=== PATIENT | male | born 1970 | race Caucasian/White ===

== ENCOUNTER 2021-04-02 10:52 | Emergency (ER) | payer OTHER, SELFPAY ==
[2021-04-02 11:14] VITALS: BP 141/92; PULSE 103; RESP 16; TEMP 37.7; O2SAT 98
--- NOTE | 2021-04-02 11:20 | ED.URI ---
HPI - URI/Sore Throat General Chief Complaint: Upper Respiratory Infection Stated Complaint: preston/sore throat/cough/fatigue Time Seen by Provider: 04/02/21 11:21 Source: patient and RN notes reviewed Mode of arrival: ambulatory Limitations: no limitations History of Present Illness HPI Narrative: 51-year-old male presents to the [facility] with complaints of headache, sore throat, cough and fatigue. Reports that he is Covid vaccinated. Had laser vaccine . Patient states he has had the increased fatigue and sore throat headache since Wednesday, 2 days ago. Has had low-grade fevers. Has taken TheraFlu Related Data Home Medications Medication Instructions Recorded Confirmed No Home Medications 04/02/21 04/02/21 Allergies Allergy/AdvReac Type Severity Reaction Status Date / Time nkda Allergy Mild Uncoded 04/08/08 09:26 Review of Systems Review of Systems: All systems reviewed & are unremarkable except as noted in HPI and below Constitutional: Constitutional: Reports as per HPI, Reports chills, Reports fatigue and Reports fever(s) Eyes: Eyes: Reports no additional eye complaints ENT: Reports as per HPI, Denies dizziness, Reports nasal congestion and Reports sore throat Cardiovascular: Cardiovascular: Reports no additional cardiovascular complaints and Denies chest pain Respiratory: Respiratory: Reports as per HPI, Denies chest congestion, Reports cough, Denies dyspnea and Denies wheezing Gastrointestinal: Gastrointestinal: Denies abdominal pain, Denies nausea and Denies vomiting Musculoskeletal: Musculoskeletal: Reports as per HPI and Reports myalgias Integumentary/Breasts: Skin/Breast: Reports system reviewed and no additional complaints, except as docu Neurologic: Reports system reviewed and no additional complaints, except as documented Psychiatric: Psychiatric: Reports no additional psychiatric complaints Allergic/Immunologic: Allergic/Immunologic: Reports no additional allergic/immunologic complaints [facility] Past Medical History Medical History (Updated 04/02/21 @ 11:39 by Eloisa Chavez) No significant medical problems Surgical History Surgical History (Updated 04/02/21 @ 11:39 by Eloisa Chavez) No significant past surgical history Family History Family History Grandparent Family history of Alzheimer's disease, Onset Age: 94 Family history of malignant neoplasm of urinary bladder Family history of thoracic aortic aneurysm Family history of congestive heart failure, Onset Age: 85 Mother Family history of malignant neoplasm of breast in first degree relative, Onset Age: 62 Social History Social History Smoking status: Former smoker Smoking end date: 04/26/12 Alcohol intake: current Comments At the time of my signature, I reviewed and agree with the nursing past medical, surgical, social, and family history. There is no relevant family history pertinent to the patient complaint. Exam Const: General: alert and ill appearing acutely (Mild) Nutritional Appearance: well nourished Orientation/consciousness: patient oriented x3 Limitations: no limitations HENMT: Head: normal to inspection Ears: external ears normal, TM's normal bilaterally and EAC's normal General nose exam: Normal external nose present Face and sinus: normal facial exam Mouth: Yes Normal oral and palatal mucosa present Throat: tonsils normal, uvula midline and postnasal drainage Eyes: Conjunctivae: conjunctivae normal Pupils: Equal, round and reactive pupils present Neck: Neck: normal visual inspection, no lymphadenopathy and no meningeal signs Chest: Chest palpation & inspection: normal inspection of the chest Resp: Effort & Inspection: normal respiratory effort and no use of accessory muscles Auscultation: clear to auscultation bilaterally, no crackles, no rales, no rhonchi and no wheezes Cardio: R
[2021-04-03 19:33] LABS: SARS-CoV-2 RNA PCR Positive
== END 2021-04-02 11:41 | disposition home or self-care (01) ==
PROVIDERS: Emergency Provider Nurse Practitioner; PCP Internal Medicine
DX: U07.1 COVID-19 (principal); Z87.891 Personal history of nicotine dependence
CPT/HCPCS: 87804; 99213; C9803; G0463; U0003; U0005

== ENCOUNTER 2021-07-01 06:21 | Emergency (ER) | payer OTHER, SELFPAY ==
[2021-07-01] VITALS (25 sets, daily range): BP systolic 154–185; BP diastolic 90–111; PULSE 72–94; RESP 11–25; TEMP 36.6; O2SAT 97–100
--- NOTE | ~2021-07-01 | CT_ITS ---
EXAMINATION: CT brain wo con DATE: 07/01/2021 07:03 INDICATION: Near syncope. TECHNIQUE: Computed tomography (CT) of the head was performed without intravenous contrast. The mA wa s adjusted according to patient size. Iterative reconstruction technique was employed. The dose-lengt h product was 681.00 mGy-cm. COMPARISON: None FINDINGS: There is no intracranial hemorrhage, acute infarction, or abnormal intracranial mass lesion . The ventricles are normal in size. The orbits are normal. There is mucosal thickening in the parana myah sinuses. The mastoid air cells are normal. IMPRESSION: 1. Normal brain. Reviewed, dictated and finalized at location A. N SERVICE WORKER IMPRESSION: 1. Normal brain.
--- NOTE | ~2021-07-01 | XR_ITS ---
EXAMINATION: XR chest 2V DATE: 07/01/2021 07:04 INDICATION: Near syncope. TECHNIQUE: Frontal and lateral views of the chest were obtained. COMPARISON: CT abdomen and pelvis 04/08/2008 FINDINGS: There is mild scarring at right lung apex. No pleural effusion or pneumothorax. The heart s ize is normal. IMPRESSION: 1. Mild scarring at right lung apex. Reviewed, dictated and finalized at location A. CUTTER
--- NOTE | ~2021-07-01 | CT_ITS ---
EXAMINATION: Chaitanya Plascencia MD DATE: 07/01/2021 08:51 INDICATION: Aortic dissection. TECHNIQUE: Computed tomographic angiography (CTA) of the chest, abdomen, and pelvis was performed wit h 100 mL Omnipaque-350 intravenous contrast. Automated exposure control and iterative reconstruction technique were employed. The dose-length product was 693.38 mGy-cm. Maximum intensity projection 3D-r econstructions of the aorta and other arteries were constructed by the technologist on a separate wor kstation. COMPARISON: CT abdomen and pelvis 04/08/2008 FINDINGS: CHEST CTA: There is mild scarring at the lung apices. No pleural effusion. The heart size is normal. No pericard ial effusion. Thoracic aorta is normal. Calcified right hilar lymph nodes are consistent with old gra nulomatous disease. ABDOMEN AND PELVIS CTA: There are cysts in the liver measuring up to 12 mm. The gallbladder is distended. The spleen, pancrea s, and adrenal glands are normal. There is cortical thinning of the kidneys. There is a 6 mm stone in right kidney. There are 4 mm and 3 mm stones in left kidney. There are cysts in the kidneys measurin g up to 2.7 cm on the left. The prostate is mildly enlarged. There is a left inguinal hernia containi ng fat. There are no dilated loops of bowel. The appendix is normal. There are no pathologically enla rged lymph nodes. There is no free intraperitoneal fluid. There is an umbilical hernia containing fat . There is mild aortic atherosclerosis. No aneurysm or dissection. There is no significant stenosis o f celiac axis, superior mesenteric artery, the renal arteries, or inferior mesenteric artery. There i s mild lumbar spondylosis. IMPRESSION: 1. Mild aortic atherosclerosis. No aneurysm or dissection. 2. Gallbladder distention, which may be secondary to fasting. Correlate with physical exam for eviden ce of acute cholecystitis. 3. Umbilical hernia and left inguinal hernia containing fat. Reviewed, dictated and finalized at location A. HOUSE WHEEL OPERATOR IMPRESSION: 1. Mild aortic atherosclerosis. No aneurysm or dissection. 2. Gallbladder distention, which may be secondary to fasting. Correlate with ph ysical exam for evidence of acute cholecystitis. 3. Umbilical hernia and left inguinal hernia containing fat.
--- NOTE | 2021-07-01 06:45 | ECG_ITS ---
Measurements Intervals [place] Rate: 74 P: 44 VT: 148 QRS: 72 QRSD: 94 T: 52 QT: 340 QTc: 378 Interpretive Statements SINUS RHYTHM POSSIBLE ANTERIOR MYOCARDIAL INFARCTION , OF INDETERMINATE AGE NO PREVIOUS ECG AVAILABLE FOR COMPARISON Electronically Signed On 07-01-2021 9:45:54 CALL CENTER RECRUITER by Eleazar Saenz M.D.
[2021-07-01] MEDS: ASPIRIN 81 MG CHEWABLE TABLET 324 MG PO (06:49)
[2021-07-01 07:06] LABS: Basophils Absolute Auto 0.1 K/mm3 (0.0-0.1); Basophils Percent Auto 0.9 % (0.2-1.2); Eosinophils Absolute Auto 0.2 K/mm3 (0-0.3); Eosinophils Percent Auto 3.5 % (0-4.4); Hematocrit 48.7 % (42.0-52.0); Hemoglobin 16.6 g/dL (14.0-18.0); Immature Granulocyte Absolute 0.03 K/mm3 (0.00-0.031); Immature Granulocyte Percent A 0.6 % (0-0.5); Lymphocytes Absolute Auto 1.64 K/mm3 (0.9-3.2); Lymphocytes Percent Auto 30.4 % (18.3-44.2); Mean Corpuscular HGB Conc 34.1 g/dl (32-36); Mean Corpuscular Hemoglobin 31.9 pg (26-34); Mean Corpuscular Volume 93.7 fl (80-100); Mean Platelet Volume 10.3 fl (7.4-10.4); Monocytes Absolute Auto 0.4 K/mm3 (0.1-0.6); Monocytes Percent Auto 6.9 % (2.6-8.5); Neutrophils Absolute Auto 3.1 K/mm3 (1.3-6.7); Neutrophils Percent Auto 57.7 % (45.5-73.1); Platelet Count Result 241 k/mm3 (150-375); Red Cell Distribution Width 13.2 % (11.5-14.5); White Blood Count 5.4 K/mm3 (4.5-10.0)
[2021-07-01 07:24] LABS: Prothrombin Time 12.3 Seconds (11.1-14.7)
[2021-07-01 07:25] LABS: Partial Thromboplastin Time 27.6 SECONDS (22.3-36.8)
--- NOTE | 2021-07-01 07:25 | ED.GENADULT ---
HPI - General Adult General Chief complaint: Unspecified Stated complaint: something doesnt feel right chills, unbalanced, Time Seen by Provider: 07/01/21 07:23 Source: patient Mode of arrival: ambulatory Limitations: no limitations History of Present Illness HPI narrative: 51 years old white male, got out of bed this morning not feeling well, feeling off, pain between shoulder blade, a lot of stress lately, history of GERD worse over the last [address] himself to the emergency room. Patient does not smoke he drinks occasionally does not use drugs. Currently feeling okay. Patient denies any fever, chills, nausea, vomiting, chest pain or shortness of breath. Related Data Allergies Allergy/AdvReac Type Severity Reaction Status Date / Time No Known Drug Allergies Allergy Verified 07/01/21 06:51 Review of Systems Review of Systems: CONSTITUTIONAL: Denies fever, chills, or sweats. EYES: Denies visual changes, redness, or discharge. ENT: Denies rhinorrhea, congestion, sore throat, or otalgia. CARDIOVASCULAR: Denies chest pain, palpitations, or edema. RESPIRATORY: Denies cough or dyspnea. GASTROINTESTINAL: Denies abdominal pain, nausea, vomiting, or diarrhea. GENITOURINARY: Denies dysuria or hematuria. SKIN: Denies rash or itching. MUSCULOSKELETAL: Denies back pain, joint pain, or myalgia. NEUROLOGIC: Denies headache, numbness, or weakness. PSYCHIATRIC: Stress and depression [facility] Past Medical History Medical History No significant medical problems Surgical History Surgical History No significant past surgical history Family History Family History Grandparent Family history of Alzheimer's disease, Onset Age: 94 Family history of malignant neoplasm of urinary bladder Family history of thoracic aortic aneurysm Family history of congestive heart failure, Onset Age: 85 Mother Family history of malignant neoplasm of breast in first degree relative, Onset Age: 62 Social History Social History Smoking status: Former smoker Smoking end date: 04/26/12 Alcohol intake: current Exam Narrative: General appearance: Well-developed, well-nourished Skin: Normal color Head: Normocephalic, nontraumatic Eyes: Clear conjunctiva ENT: Oropharynx normal, ears normal, nose normal Neck: Supple, nontender Chest and respiratory: Airway patent, no respiratory distress, no accessory muscle use Heart: Regular rate/rhythm Abdomen: Soft, nontender, no organomegaly, quiet bowel sounds Vascular: Normal peripheral pulses, normal capillary refill. 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 Work-up did not show any significant findings to explain patient condition. Patient does not have any coronary artery risk factors or any other comorbidities. My plan to start patient on antihypertensive medication. Patient was able to get out of bed and walk around in the emergency room without any complaints or abnormalities. Vital Signs Vital signs: Vital Signs Pulse Oximetry 100 07/01/21 06:30 Temperature 36.6 C 07/01/21 06
[2021-07-01 08:02] LABS: Alanine Aminotransferase 38 U/L (4-50); Albumin Level 4.2 g/dL (3.5-5.1); Alkaline Phosphatase 108 U/L (38-126); Anion Gap 7 mmol/L (8-16); Aspartate Amino Transferase 32 U/L (17-59); Bilirubin,Total 0.4 mg/dL (0.2-1.3); Blood Urea Nitrogen 14 mg/dL (9-20); Calcium 8.8 mg/dL (8.4-10.2); Carbon Dioxide 26 mmol/L (22-30); Chloride 109 mmol/L (98-107); Estimated CRCL calculation 95 ml/min; Estimated Glomerular Filt Rate > 60; Glucose 132 mg/dL (65-110); Lipase 82 U/L (23-300); Sodium 142 mmol/L (137-145)
[2021-07-01 08:12] LABS: Troponin I < 0.012 ng/mL (0.000-0.034)
[2021-07-01 08:20] LABS: Potassium 3.7 mmol/L (3.4-5.0)
== END 2021-07-01 09:59 | disposition home or self-care (01) ==
PROVIDERS: Emergency Medicine; Emergency Provider Emergency Medicine; PCP Internal Medicine
DX: F41.9 Anxiety disorder, unspecified (principal); I10 Essential (primary) hypertension; Z87.891 Personal history of nicotine dependence; R94.31 Abnormal electrocardiogram [ECG] [EKG]; I70.0 Atherosclerosis of aorta; K42.9 Umbilical hernia without obstruction or gangrene; K40.90 Unilateral inguinal hernia, without obstruction or gangrene, not specified as recurrent
CPT/HCPCS: 36415; 70450; 71046; 71275; 74174; 80053; 83690; 84484; 85025; 85610; 85730; 93005; 99284; A9270; Q9967

== ENCOUNTER 2021-08-07 00:37 | Day surgery (SDC) | payer OTHER, SELFPAY ==
[2021-07-25 14:52] VITALS: BMI 26.4
--- NOTE | 2021-08-06 13:43 | PM.HPGS ---
History of Present Illness History of Present Illness Consent: Risks, benefits, and alternatives have been discussed and questions answered. Patient agrees to proceed with procedure. Chief complaint: neoplasm screening Narrative: Liu William is a 51 year old male Referred for colon cancer screening. This is his 1st colonoscopy Review of Systems Review of Systems: All systems reviewed & are unremarkable except as noted in HPI and below PMFSH Past Medical History Medical History Change in bowel movement Elevated blood pressure reading Encounter for screening for other metabolic disorders FH: prostate cancer Hx of renal calculi No significant medical problems Screening, lipid Surgical History Surgical History No significant past surgical history Family History Family History Grandparent Family history of Alzheimer's disease, Onset Age: 94 Family history of malignant neoplasm of urinary bladder Family history of thoracic aortic aneurysm Family history of congestive heart failure, Onset Age: 85 Mother Family history of malignant neoplasm of breast in first degree relative, Onset Age: 62 Social History Social History Smoking status: Former smoker Tobacco type: cigarettes Smoking end date: 04/26/12 Alcohol intake: current Living arrangements: with family Spiritual care concerns: No Meds Home Medications and Allergies Home Medications Medication Instructions Recorded Confirmed Type acetaminophen 650 mg PO QID PRN 07/25/21 08/07/21 History lisinopril 10 1 tablet PO DAILY #30 tablet 07/29/21 08/07/21 Rx mg-hydrochlorothiazide 12.5 mg tablet escitalopram oxalate 5 mg tablet 5 mg PO DAILY #30 tablet 08/04/21 08/07/21 Rx Allergies Allergy/AdvReac Type Severity Reaction Status Date / Time No Known Allergies Allergy Verified 08/07/21 10:11 Exam Const: General: alert Orientation/consciousness: patient oriented x3 Resp: Auscultation: clear to auscultation bilaterally Cardio: Rhythm: regular rhythm GI: GI Palp: Yes Soft to palpation and No Tenderness to palpation present (GI) Neuro: General: patient oriented x3 Assessment and Plan Assessment and plan (1) Colon cancer screening: Code(s): Z12.11 - Encounter for screening for malignant neoplasm of colon Status: Acute Assessment and Plan: Colonoscopy with possible biopsy or polypectomy or cautery or injection of substances.
[2021-08-07 10:12] VITALS: BP 125/76; PULSE 96; RESP 18; TEMP 36.8; O2SAT 97
[2021-08-07] MEDS: LACTATED RINGERS 1,000 ML 150 ML IV CONT (10:25)
--- NOTE | 2021-08-07 10:27 | WPDANESEPPF ---
Anes - Initial Pre Proc Eval Procedure: Operation Date: 08/07/21 11:15 Proposed Procedures p Screening Colonoscopy - Jessee Sellers MD Date/Time: 08/07/21 10:27 Surgeon: Jessee Sellers MD Pre Op Diagnosis: neoplasm screening Patient Data Age: 51 Gender: M Height: 1.85 m Weight: 86.3 kg Last Vital Signs Temp 36.8 C 08/07/21 10:12 Pulse 96 08/07/21 10:12 Resp 18 08/07/21 10:12 BP 125/76 08/07/21 10:12 Pulse Ox 97 08/07/21 10:12 Allergies Allergy/AdvReac Type Severity Reaction Status Date / Time No Known Allergies Allergy Verified 08/07/21 10:11 Home Medications Medication Instructions Recorded Confirmed Type acetaminophen 650 mg PO QID PRN 07/25/21 08/07/21 History lisinopril 10 1 tablet PO DAILY #30 tablet 07/29/21 08/07/21 Rx mg-hydrochlorothiazide 12.5 mg tablet escitalopram oxalate 5 mg tablet 5 mg PO DAILY #30 tablet 08/04/21 08/07/21 Rx Patient hx anesthesia problems: none Family hx anesthesia problems: none Results Review: All pre-operative results and documents have been reviewed as part of the pre-operative evaluation. [facility] Past Medical History Medical History Change in bowel movement Elevated blood pressure reading Encounter for screening for other metabolic disorders FH: prostate cancer Hx of renal calculi No significant medical problems Screening, lipid Surgical History Surgical History No significant past surgical history Family History Family History Grandparent Family history of Alzheimer's disease, Onset Age: 94 Family history of malignant neoplasm of urinary bladder Family history of thoracic aortic aneurysm Family history of congestive heart failure, Onset Age: 85 Mother Family history of malignant neoplasm of breast in first degree relative, Onset Age: 62 Social History Social History Smoking status: Former smoker Tobacco type: cigarettes Smoking end date: 04/26/12 Alcohol intake: current Living arrangements: with family Spiritual care concerns: No Anes - Eval Final PreProcedure Day of Procedure 08/07/21 10:27 Patient weight: normal Heart: regular rate and rhythm Lungs: clear to auscultation Airway: Mallampati scale class II Neurological: alert and oriented Last oral intake: >/= 8 hours ASA classification: II Emergent: no Anesthetic plan: proceed Anesthesia type and monitoring: general GIVS and standard monitoring Results Review: All pre-operative results and documents have been reviewed as part of the pre-operative evaluation. Informed Consent: The patient's anesthetic plan and its attendant risks and benefits were discussed with the patient/family/POA. Questions were solicited and answers provided to the satisfaction of the patient/family/POA.
[2021-08-07 11:30] VITALS: BP 118/81; PULSE 74; RESP 15; O2SAT 97
[2021-08-07 11:40] VITALS: BP 124/82; PULSE 69; RESP 17; O2SAT 99
[2021-08-07 11:50] VITALS: BP 125/90; PULSE 68; RESP 13; O2SAT 100
== END 2021-08-07 12:07 | disposition home or self-care (01) ==
PROVIDERS: PCP Family Medicine; Visit Provider Internal Medicine Gastroenterology
PROC: 0DJD8ZZ Inspection of Lower Intestinal Tract, Via Natural or Artificial Opening Endoscopic (ICD-10-PCS; CPT 45378; principal; 2021-08-07 11:15)
DX: Z12.11 Encounter for screening for malignant neoplasm of colon (principal)
CPT/HCPCS: 45378; J2001; J2704; J7120

== ENCOUNTER 2022-01-08 09:02 | Outpatient (CLI) | payer OTHER, SELFPAY ==
[2022-01-08 21:24] LABS: Hemoglobin A1C 4.8 % (<5.7)
== END 2022-01-08 09:03 | disposition home or self-care (01) ==
PROVIDERS: PCP Family Medicine; Visit Provider Family Medicine
DX: R73.01 Impaired fasting glucose (principal)
CPT/HCPCS: 36415; 83036

== ENCOUNTER 2022-07-17 08:08 | Outpatient (CLI) | payer OTHER, SELFPAY ==
[2022-07-17 19:05] LABS: Alanine Aminotransferase 37 U/L (6-50); Albumin Level 4.2 g/dL (3.5-5.1); Alkaline Phosphatase 110 U/L (38-126); Anion Gap 9 mmol/L (8-16); Aspartate Amino Transferase 38 U/L (17-59); Bilirubin,Total 0.6 mg/dL (0.2-1.3); Blood Urea Nitrogen 16 mg/dL (9-20); Calcium 9.2 mg/dL (8.4-10.2); Carbon Dioxide 27 mmol/L (22-30); Chloride 103 mmol/L (98-107); Cholesterol 231 mg/dL (0-200); Estimated Glomerular Filt Rate > 60; Glucose 77 mg/dL (65-110); HDL Direct 29 mg/dL; Potassium 4.1 mmol/L (3.4-5.0); Sodium 139 mmol/L (137-145); Triglycerides 143 mg/dL (<150)
[2022-07-17 19:17] LABS: LDL Cholesterol Direct 162 mg/dL
[2022-07-17 19:37] LABS: Prostate Specific Antigen 1.4 ng/mL (< OR = 4.0)
== END 2022-07-17 08:09 | disposition home or self-care (01) ==
LOC: ANHGOSHLAB 08:09
PROVIDERS: PCP Family Medicine; Visit Provider Family Medicine
DX: Z12.5 Encounter for screening for malignant neoplasm of prostate (principal); Z13.220 Encounter for screening for lipoid disorders; I10 Essential (primary) hypertension
CPT/HCPCS: 36415; 80053; 80061; 84153; G0103

== ENCOUNTER → 2023-01-22 10:10 | Outpatient (CLI) | payer OTHER, SELFPAY ==
--- NOTE | ~2023-01-22 | XR_ITS ---
EXAMINATION: XR knee LT min 4V DATE: 01/22/2023 10:35 INDICATION: Left knee pain TECHNIQUE: Weight bearing anteroposterior and [place], sunrise, and flexed lateral views of the aff ected knee were obtained COMPARISON: None. FINDINGS: Alignment is normal. No fracture. Chondrocalcinosis at the medial lateral compartments of the knee. There is mild joint space narrowing the medial compartment the standing position which increases to m oderate severity with mild genu varus with the knee in the flexed position. Opinion flexed position t here is also extrusion of the body of the medial meniscus as indicated by the chondrocalcinosis. 13 x 10 mm lucency with narrow zone of transition underlying the medial rim of the medial tibial plateau most likely a degenerative subchondral geode. Normal joint space and the lateral and patellofemoral c ompartments. No joint effusion. Soft tissues are unremarkable. Subcutaneous varicose veins along the medial aspect of the proximal calf. Soft tissues are otherwise unremarkable. IMPRESSION: 1. Chondrocalcinosis with mild to moderate osteoarthritis at the medial compartment of the left knee greatest in the flexed position where there is also medial extrusion of the medial meniscal body. Reviewed, dictated and finalized at location A. IMPRESSION: 1. Chondrocalcinosis with mild to moderate osteoarthritis at the medial compart ment of the left knee greatest in the flexed position where there is also media l extrusion of the medial meniscal body.
== END ==
PROVIDERS: PCP Family Medicine; Visit Provider Family Medicine
DX: M11.262 Other chondrocalcinosis, left knee (principal); M17.12 Unilateral primary osteoarthritis, left knee; Z12.31 Encounter for screening mammogram for malignant neoplasm of breast
CPT/HCPCS: 73564

== ENCOUNTER 2023-07-16 09:01 | Outpatient (CLI) | payer OTHER, SELFPAY ==
[2023-07-16 15:31] LABS: Alanine Aminotransferase 32 U/L (6-50); Albumin Level 4.3 g/dL (3.5-5.1); Alkaline Phosphatase 98 U/L (38-126); Anion Gap 6 mmol/L (8-16); Aspartate Amino Transferase 49 U/L (17-59); Bilirubin,Total 0.5 mg/dL (0.2-1.3); Blood Urea Nitrogen 17 mg/dL (9-20); Calcium 9.8 mg/dL (8.4-10.2); Carbon Dioxide 30 mmol/L (22-30); Chloride 103 mmol/L (98-107); Cholesterol 202 mg/dL (0-200); Estimated Glomerular Filt Rate > 60; Glucose 80 mg/dL (65-110); HDL Direct 29 mg/dL; Potassium 3.9 mmol/L (3.4-5.0); Sodium 139 mmol/L (137-145); Triglycerides 118 mg/dL (<150)
[2023-07-16 15:43] LABS: LDL Cholesterol Direct 151 mg/dL
[2023-07-16 16:03] LABS: Prostate Specific Antigen 1.7 ng/mL (< OR = 4.0)
== END 2023-07-16 09:02 | disposition home or self-care (01) ==
LOC: ANHGOSHLAB 09:02
PROVIDERS: PCP Family Medicine; Visit Provider Family Medicine
DX: Z12.5 Encounter for screening for malignant neoplasm of prostate (principal); Z13.220 Encounter for screening for lipoid disorders; Z13.228 Encounter for screening for other metabolic disorders
CPT/HCPCS: 36415; 80053; 80061; 84153; G0103

== ENCOUNTER 2024-02-04 08:58 | Outpatient (CLI) | payer OTHER, SELFPAY ==
[2024-02-04 17:07] LABS: Alanine Aminotransferase 32 U/L (6-50); Albumin Level 4.3 g/dL (3.5-5.1); Alkaline Phosphatase 100 U/L (38-126); Anion Gap 7 mmol/L (4-12); Aspartate Amino Transferase 49 U/L (17-59); Bilirubin,Total 0.5 mg/dL (0.2-1.3); Blood Urea Nitrogen 15 mg/dL (9-20); Calcium 9.3 mg/dL (8.4-10.2); Carbon Dioxide 28 mmol/L (22-30); Chloride 102 mmol/L (98-107); Cholesterol 201 mg/dL (0-200); Estimated Glomerular Filt Rate > 60; Glucose 103 mg/dL (65-110); HDL Direct 33 mg/dL; Potassium 4.3 mmol/L (3.4-5.0); Sodium 137 mmol/L (137-145); Triglycerides 97 mg/dL (<150)
[2024-02-04 17:25] LABS: LDL Cholesterol Direct 134 mg/dL
== END 2024-02-04 08:59 | disposition home or self-care (01) ==
LOC: ANHGOSHLAB 08:59
PROVIDERS: PCP Family Medicine; Visit Provider Family Medicine
DX: E78.5 Hyperlipidemia, unspecified (principal); Z13.228 Encounter for screening for other metabolic disorders
CPT/HCPCS: 36415; 80053; 80061

== ENCOUNTER 2024-02-15 14:28 | Outpatient (CLI) | payer OTHER, SELFPAY ==
--- NOTE | ~2024-02-15 | XR_ITS ---
XR knee LT min 4V 02/15/2024 14:52 Indication: Left knee pain Procedure: 4 views left knee Comparison: No prior studies for comparison. Findings: There is tricompartment osteoarthritis of the left knee. No fracture, subluxation or disloc ation. There is chondrocalcinosis. No significant joint effusion. Impression: 1: Mild tricompartment osteoarthritis of the left knee. Reviewed, dictated and finalized at location B. Impression: 1: Mild tricompartment osteoarthritis of the left knee.
== END 2024-02-15 14:29 | disposition home or self-care (01) ==
LOC: MICIMG 14:29
PROVIDERS: PCP Family Medicine; Visit Provider Family Medicine
DX: M17.12 Unilateral primary osteoarthritis, left knee (principal)
CPT/HCPCS: 73564